=== PATIENT | male | born 1975 | race Caucasian/White ===

== ENCOUNTER 2016-03-03 10:55 | Day surgery (SDC) | payer MEDICAID, OTHER ==
[~2016-03-03] VITALS: Ht 182.9 cm; Wt 115.7 kg
[2016-03-03] VITALS (12 sets, daily range): BP systolic 109–164; BP diastolic 63–88; PULSE 74–108; RESP 13–20; O2SAT 91–98
--- NOTE | 2016-03-03 06:47 | PCM.HPANE ---
Patient Data Surgeon Admitting Provider: Attending Provider:Enrico Vega MD Primary Care Physician:Chi Hernandez MD Other Provider:[facility] Reason for Visit Umbilical Hernia Ht/WT & BMI Height (Feet): 6 Height (Inches): 0 Weight (Kilograms): 115.666 Body Mass Index 34.00 Allergies Coded Allergies: No Known Allergies (Verified Allergy, Unknown, 02/27/16) Past Anesthesia History Anesthesia History: Denies:: Anesthesia Reactions, Malignant Hyperthermia Diabetes History Hx Diabetes?: No MRSA MRSA: No Medications Reported Medications Terbinafine (Lamisil)250 Mg [id number] Mg PO DAILY 02/14/16 Naproxen 500 Mg Arg323 Mg PO BID PRN For Pain Ref 0 02/14/16 Cetirizine HCl (24Hour Allergy)10 Mg [id number] Mg PO DAILY 02/14/16 History History of ENT Problems?: No Hx of Heart Problems?: No Cardiovascular History: Denies:: Heart Murmur Hypertension Valvular Heart Disease Hx of Respiratory Problem?: Yes Respiratory History: Denies:: Pneumonia (HX BRONCHITIS 2013) Use of C-PAP Machine (SNORES) Hx Neurologic Problems?: Yes Hx of GI Problems?: Yes Other GI Pertinent History: UMBILICAL HERNIA=CURRENT PROBLEM C/OF ABD PAIN Hx of Problems?: No Male Hx: Denies:: Prostate Problems Scrotal Mass Testicular Surgery Skin History: Positive for:: History Skin Disorders? 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)Have You Smoked inLast 12 mo: Yes (CURRENTLY "VAPES") Approx How Many Cigarettes/day: 20YR HX Stop/Bang S-Snoring: Do You Snore Loudly: Yes T-Tired: feel tired, fatigued: Yes O-Obsered: Observed not breath: No P-Blood Pressure: treated: No B- Body Mass Index > 35 kg/m2: No A- Age over 50: No N- Neck Large Circumference: Yes G- Gender Male: Yes GREG Total Score: 4 GREG Risk Assessment: High Risk, =/>3 Yes GREG Category 4 OutPt Procedure: Yes Risk Assessment Category Category 1A: Patient has history of documented sleep apnea, and HAS NOT received any narcotic, sedative or anesthesia administration during this stay. Category 1B: Patient has history of documented sleep apnea, and HAS received any narcotic , sedative or anesthesia administration during this stay Category 2: Patient has SUSPECTED Obstructive Sleep Apnea, and HAS received any narcotic , sedative or anesthesia administration during this stay. Category 3: Patient has SUSPECTED Obstructive Sleep Apnea and HAS NOT received narcotic, sedative or anesthesia administration during this stay. Category 4: Outpatient in Procedural Areas with known sleep apnea or who screen positive for High Risk via the STOP/BANG questionnaire. Exam Exam General Appearance: Alert, Oriented X3, Cooperative, No Acute Distress HEENT/AIRWAY: MP 2 Lungs: Clear to Auscultation, Normal Air Movement Heart: Exam Unremarkable, Regular Rate/Rhythm, No Murmurs/Rubs/Gallops Plan Impression Patient chart reviewed, patient interviewed and anesthestic plan with risks, benefits, and alternatives discussed, and informed consent obtained. NPO Status: PM, 12.13 ASA Physical Status: ASA3 Severe Disease Anesthetic Plan: GA Bene/Risks/Altern/Consents: Yes HP Complete Prior to Induction: Yes Kenny Matthews MD Mar 03, 2016 06:47
[~2016-03-03 10:55] MED LIST: Bupivacaine Liposome 1.3% 20 mL Inj INFILTRATE ONE; CETI-343 PO; CeFAZolin Inj 2 GM in IV Premix 1 EACH IV SCH; Lactated Ringer's 1,000 ML IV ONE; NPR500T PO; TERB250T4 PO
[2016-03-03] MEDS ORDERED: Dexamethasone 4 mg/mL Inj ONE (10:56)
[2016-03-03] MEDS ORDERED: Propofol 10,000 mCg/mL 20 mL Inj ONE (10:56)
[2016-03-03] MEDS ORDERED: Ondansetron 2 mg/mL 2 mL Inj ONE (10:56)
[2016-03-03] MEDS ORDERED: fentaNYL-PF 50 mCg/mL 2 mL Inj ONE (10:56)
[2016-03-03] MEDS ORDERED: Lactated Ringer's 1,000 ML IV ONE ×2 (11:21→15:07)
[2016-03-03] MEDS ORDERED: Bupivacaine-MPF 0.5% W/EPI 30 mL Inj INFILTRATE ONE (13:59)
[2016-03-03] MEDS ORDERED: Lactated Ringer's 500 ML IV PRN (14:29)
[2016-03-03] MEDS ORDERED: Lactated Ringer's 1,000 ML IV SCH (14:29)
[2016-03-03] MEDS ORDERED: HYDROmorphone 1 mg/mL Inj IVPUSH PRN (14:30)
[2016-03-03] MEDS ORDERED: Phenylephrine 10,000 mCg/mL Inj IVPUSH PRN (14:30)
[2016-03-03] MEDS ORDERED: Dexamethasone 4 mg/mL Inj IVPUSH PRN (14:30)
[2016-03-03] MEDS ORDERED: MetoCLOpramide 5 mg/mL 2 mL Inj IVPUSH PRN (14:30)
[2016-03-03] MEDS ORDERED: Ondansetron 2 mg/mL 2 mL Inj IVPUSH PRN (14:30)
[2016-03-03] MEDS ORDERED: EPHEDrine Sulfate 50 mg/mL Inj IVPUSH PRN (14:30)
--- NOTE | 2016-03-03 15:24 | PCM.DISURG ---
Surgical Discharge Instruction Date of Service Mar 03, 2016 Dates of Hospitalization Date of Hospital Admission Providers Admitting Physician: Primary Care Physician: Chi Hernandez MD Attending Physician: Enrico Vega MD Discharge Diagnosis Discharge Diagnosis Umbilical hernia Activity Discharge Activity-General: No lifting >10 pounds for 4-6 weeks Dressing and Incisional Care Dressing Care: Allow Steri Stripes to fall off, Remove outer dressing after 24 hrs Hygiene: May shower after (24 hours) Follow Up Plan Follow Up Plan In the general surgery [place] postoperative clinic in 2-3 weeks Call your provider for: Fever (over 101.5), Vomiting, Discharge @ incision, pus discharge Enrico Vega MD Mar 03, 2016 15:24
[2016-03-03] MEDS ORDERED: oxyCODONE-Acetamin 5-325 mg Tablet PO PRN (15:25)
--- NOTE | 2016-03-03 15:28 | PCM.SURGOP ---
Surgical Operative Report Date of Service: Mar 03, 2016 Pre Operative Diagnosis Incarcerated umbilical hernia Post Operative Diagnosis Same Procedure: Umbilical hernia repair with mesh Surgeon and Checking Department Supervisor: Surgeon: Enrico Vega MD Assistants: Aissatou Baca PA-C Indication for Procedure 40-year-old man who has had an umbilical hernia for approximately 10 years, which has gotten larger in size and more symptomatic. It was not completely reducible. After discussion of risks and benefits, he agreed to proceed with umbilical hernia repair with mesh. Findings: The fascial defect measured approximately 2 cm, and contained incarcerated preperitoneal fat. A repair was performed using the large Bard Ventralex mesh. Procedure Details After smooth induction of general endotracheal anesthesia, the patient was placed in the supine position with both arms out, and was prepped and draped in wide sterile fashion. A procedural pause was performed according to the SCOAP checklist, and all were found to be in agreement. A curvilinear infraumbilical incision was made. Dissection was carried down with electrocautery through the superficial subcutaneous tissue. The umbilical stalk was encircled with a hemostat. The umbilical stalk was disconnected using cautery. The hernia contents were from the umbilical stalk. The hernia contained incarcerated preperitoneal fat, which was mostly excised. The fascia was skeletonized. The fascial defect measured 2 cm in diameter. By palpation, there were no other hernia defects, and no significant intra- abdominal adhesions. A repair was performed using the Bard Ventralex mesh, size large. This was secured as an underlay using 0 Nurolon transfacial sutures circumferentially. The tails of the mesh were cut. The mesh was in good position. The fascia was closed over the mesh transversely using interrupted 0 Nurolon sutures. The umbilical stalk was resuspended to the fascia using an interrupted 3-0 Vicryl suture. The skin incision was closed with interrupted deep dermal 3-0 Vicryl sutures, and a running 4-0 Monocryl subcuticular stitch. Steri-Strips and sterile dressings were applied. At the end of the case all needle and sponge counts were correct 2. The patient was awakened from anesthesia without difficulty, and taken to the recovery room in satisfactory condition, having tolerated the procedure well. Complications There were no periprocedural complications identified. Surgical Specimen Removed: No Specimen sent to Pathology: Not applicable Anesthetic Plan: GA Grafts, Implants: Implants-See Implant Record Output, Estimated Blood Loss: 20 Blood Administration during hoang: No Drains: None Catheters: None copies to: Chi Hernandez MD, Joshua D MD Mar 03, 2016 15:28
--- NOTE | 2016-03-03 15:45 | PCM.ANEP1 ---
Post Anesthesia Phase 1 PACU Phase 1 Assessment Date of Service: Mar 03, 2016 Vital Signs Vital Signs Date Time Temp Pulse Resp B/P Pulse Ox O2 Delivery O2 Flow Rate FiO2 03/03/16 11:17 36.2 74 16 136/88 94 Anesthetic Administered: GA Level of Alertness: Awake, talking DAVID's with Equal Strength: Yes Pain: No Airway Device: Oralpharangeal Airway Oxygen Delivery: Simple Mask Lungs: Clear to Auscultation, Normal Air Movement Summary extubated in OR after swallowing, moving good air. Suctioned before extubation. IN PACU, laryngospasm. Supported with Bag/Valve/MAsk to resolution Lowest sat 81. Awake and alert after laryngospasm Good train of 4 and tetanus nonetheless, in this large man 1 additional mg of neostigmine and .02 glycopyrrolate. given Kenny Matthews MD Mar 03, 2016 15:45
--- NOTE | 2016-03-03 15:50 | PCM.ANEP2 ---
Post Anesthesia Evaluation ASA/CMS Post Anesthesia VS in Patient's Normal Range?: Yes Resp Stable; Airway Patent?: Yes CV Function & Hydration Stable: Yes Mental Status Recovered?: Yes Pain control Satisfactory?: Yes N/V Control Satisfactory?: Yes Kenny Matthews MD Mar 03, 2016 15:50
[2016-03-03] MEDS: fentaNYL-PF 50 mCg/mL 2 mL Inj IVPUSH PRN ×2 (15:59→16:19)
== END 2016-03-03 23:59 | disposition home or self-care (01) ==
LOC: SAS 10:55
PROVIDERS: ATTEND Student in an Organized Health Care Education/Training Program
DX: K42.9 Umbilical hernia without obstruction or gangrene (principal); Z87.891 Personal history of nicotine dependence
CPT/HCPCS: 49585; C1781; J0690; J1100; J2250; J2405; J7120